=== PATIENT | male | born 1940 | race Two or more races ===

== ENCOUNTER 2024-08-06 11:24 | Inpatient (IN) | payer MEDICARE, OTHER ==
[~2024-08-06] VITALS: Ht 170.2 cm; Wt 44.9 kg
[2024-08-06 11:51] LABS: BASOPHILS # (AUTO) 0.1 K/uL (0.0-0.2); BASOPHILS % (AUTO) 0.5 % (0.0-2.0); HEMATOCRIT 39 % (39-51); HEMOGLOBIN 12.5 g/dL (13.5-17.5); LYMPHOCYTES % (AUTO) 6.9 % (20.0-44.0); MEAN CORPUSCULAR HEMOGLOBIN 33 PG (26.0-33.0); MEAN CORPUSCULAR HGB CONC 32 g/dl (31.0-36.0); MEAN CORPUSCULAR VOLUME 102 fL (80-96); MONOCYTES # (AUTO) 1.2 K/uL (0.1-1.30); NEUTROPHILS # (AUTO) 11.6 K/uL (1.8-8.9); NEUTROPHILS % (AUTO) 83.6 % (43.0-81.0); PLATELET COUNT (AUTO) 178 K/uL (150-450); RED BLOOD CELL COUNT(AUTO) 3.83 MIL/uL (4.5-6.0); RED CELL DISTRIBUTION WIDTH 16.4 % (11.5-15.0); WHITE BLOOD COUNT (AUTO) 13.9 K/uL (4.3-11.0)
[2024-08-06 12:02] LABS: INR 1.3 (0.91-1.10); PARTIAL THROMBOPLASTIN TIME 23.4 SEC (24.3-34.3); PROTHROMBIN TIME 13.5 SECS (9.2-11.1)
[2024-08-06 12:14] LABS: ALANINE AMINOTRANSFERASE 39 U/L (12-78); ALBUMIN 2.8 g/dL (3.4-5.0); ALKALINE PHOSPHATASE 107 U/L (46-116); ASPARTATE AMINOTRANSFERASE 32 U/L (15-37); BILIRUBIN,DIRECT 0.2 mg/dL (0.0-0.2); BILIRUBIN,TOTAL 0.6 mg/dL (0.2-1.0); CALCIUM, SERUM 9.3 mg/dL (8.5-10.1); CARBON DIOXIDE 29 mmol/L (21-32); CHLORIDE 112 mmol/L (98-107); CREATININE 1.2 mg/dL (0.6-1.3); GLUCOSE 174 mg/dL (74-106); NT-PRO BNP 543 pg/mL (0-125); POTASSIUM 4.5 mmol/L (3.5-5.1); SODIUM SERUM 150 mmol/L (136-145); TOTAL PROTEIN, SERUM 8.2 g/dL (6.4-8.2); UREA NITROGEN, BLOOD 39 mg/dL (7-18)
[2024-08-06] MEDS: CEFEPIME 1 GM in IV D5W 50 ML IV ONE (13:02)
[2024-08-06] MEDS: VANCOMYCIN 1 GM in IV D5W 250 ML IV ONE (13:31)
[2024-08-06] MEDS ORDERED: CEFTRIAXONE 1GM BAG (ER ONLY) 50 ML IV ONE (13:42)
[2024-08-06] MEDS: CEFTRIAXONE 1GM BAG (ER ONLY) 1 GM/50 ML PIGGYBACK IV ONE (13:44)
[2024-08-06] MEDS: AZITHROMYCIN 500 MG in IV D5W 250 ML IV ONE (13:53)
[2024-08-06 20:42] VITALS: O2SAT 96
[2024-08-06] MEDS ORDERED: Z GUARD REMEDY 4 OZ OINT TP PRN (21:30)
[2024-08-06] MEDS ORDERED: MAG HYDROX/AL HYDROX/SIMETH 30 ML UDC PO PRN (21:30)
[2024-08-06] MEDS ORDERED: MAGNESIUM HYDROXIDE 30 ML UDC PO PRN (21:30)
[2024-08-06] MEDS ORDERED: ONDANSETRON HCL/PF 4 MG/2 ML VIAL IVP PRN (21:30)
[2024-08-06] MEDS ORDERED: ZOLPIDEM TARTRATE 5 MG TABLET PO PRN (21:30)
[2024-08-06] MEDS ORDERED: ENOXAPARIN SODIUM 40 MG/0.4 ML DISP.SYRIN SQ SCH (21:30)
[2024-08-06] MEDS ORDERED: ACETAMINOPHEN 325 MG TABLET PO PRN (21:30)
[2024-08-06 22:56] VITALS: O2SAT 98
[2024-08-06] MEDS: ENOXAPARIN SODIUM 30 MG/0.3 ML DISP.SYRIN SQ SCH (22:57)
[2024-08-06 23:00] VITALS: BP_SYST 120; BP_SYST 125; BP_DIAS 68; BP_DIAS 73; TEMP 98.6; O2SAT 95; O2SAT 98
[2024-08-06 23:12] LABS: ABG BASE EXCESS 0.6 mmol/L (-2.0-3.0); ABG OXYGEN SATURATION 98.7 % (94.0-98.0); ABG PCO2 33.1 mmHg (35.0-48.0); ABG PH 7.472 (7.350-7.450); ABG PO2 162.7 mmHg (83.0-108.0); ABG TOTAL HEMOGLOBIN 12.7 G/dL (13.5-17.5); COHb 0.2 % (0.5-1.5); MetHb 0.1 % (0.0-1.5); O2Hb 98.4 % (94.0-97.0); SITE, ABG RIGHT RADIAL
[2024-08-06 23:20] VITALS: O2SAT 97
[2024-08-07] VITALS (64 sets, daily range): BP systolic 104–136; BP diastolic 60–98; TEMP 98–98.6; O2SAT 50–97
[2024-08-07 04:25] LABS: BASOPHILS % (AUTO) 0.3 % (0.0-2.0); HEMATOCRIT 36 % (39-51); HEMOGLOBIN 11.8 g/dL (13.5-17.5); LYMPHOCYTES # (AUTO) 0.9 K/uL (0.8-4.8); LYMPHOCYTES % (AUTO) 6.5 % (20.0-44.0); MEAN CORPUSCULAR HEMOGLOBIN 33 PG (26.0-33.0); MEAN CORPUSCULAR HGB CONC 33 g/dl (31.0-36.0); MEAN CORPUSCULAR VOLUME 101 fL (80-96); MONOCYTES # (AUTO) 1.4 K/uL (0.1-1.30); MONOCYTES % (AUTO) 10.4 % (2.0-12.0); NEUTROPHILS # (AUTO) 11.6 K/uL (1.8-8.9); NEUTROPHILS % (AUTO) 82.8 % (43.0-81.0); PLATELET COUNT (AUTO) 155 K/uL (150-450); RED BLOOD CELL COUNT(AUTO) 3.56 MIL/uL (4.5-6.0)
[2024-08-07 04:53] LABS: CALCIUM, SERUM 8.7 mg/dL (8.5-10.1); CARBON DIOXIDE 32 mmol/L (21-32); CHLORIDE 109 mmol/L (98-107); GLUCOSE 128 mg/dL (74-106); MAGNESIUM 2.5 mg/dL (1.8-2.4); POTASSIUM 4.1 mmol/L (3.5-5.1); SODIUM SERUM 146 mmol/L (136-145); UREA NITROGEN, BLOOD 38 mg/dL (7-18)
[2024-08-07] MEDS: PANTOPRAZOLE 40 MG VIAL IV SCH (08:18)
[2024-08-07] MEDS: VANCOMYCIN 500 MG in IV D5W 100ml IV SCH (08:41)
[2024-08-07] MEDS: CEFEPIME 1 GM in IV D5W 50 ML IV SCH (09:41)
[2024-08-07] MEDS: methylPREDNISolone SOD SUCC 125 MG/2ML VIAL IV SCH (10:46)
[2024-08-07 10:50] LABS: APPEARANCE,URINE TURBID (CLEAR); BILIRUBIN,URINE 1+ (NEGATIVE); BLOOD, URINE 1+ Ery/uL (NEGATIVE); COLOR,URINE YELLOW (YELLOW); KETONES,URINE NEGATIVE (NEGATIVE); LEUKOCYTE ESTERASE ,URINE NEGATIVE (NEGATIVE); NITRITE, URINE POSITIVE (NEGATIVE); PROTEIN,URINE 2+ mg/dl (NEGATIVE); UGLUCOSE TRACE mg/dL (NEGATIVE)
[2024-08-07 11:06] LABS: ADD URINE CULTURE YES; BACTERIA,URINE Few /HPF (None Seen); SQUAMOUS EPITHELIAL CELL,UR None Seen /HPF (None Seen); URINE AMORPHOUS URATE Moderate /HPF (None Seen); WBC,URINE 0-2 /HPF (0-3)
[2024-08-07 11:48] LABS: CREATININE, URINE 302.6 MG/DL (30.0-125.0); URINE SODIUM, RANDOM < 5 mmol/l (40-220); URINE TOTAL PROTEIN 219.4 mg/dL (0-11.9)
[2024-08-07 12:42] LABS: EOSINOPHIL,URINE None Seen
[2024-08-07] MEDS ORDERED: [UNRECOGNIZED DRUG - OTHER] PO (13:13)
[2024-08-07] MEDS ORDERED: DOCU100C36 PO (13:13)
[2024-08-07] MEDS ORDERED: CHOL200038 PO (13:13)
[2024-08-07] MEDS ORDERED: ALBU6.7H9 IH (13:13)
[2024-08-07] MEDS ORDERED: ASPI-1420 PO (13:13)
[2024-08-07] MEDS ORDERED: CALC-770 PO (13:13)
[2024-08-07] MEDS ORDERED: CYAN-51 PO (13:13)
[2024-08-07] MEDS ORDERED: TERA5CAP4 PO (13:13)
[2024-08-07] MEDS ORDERED: OLOP5DRO22 EACHEYE (13:13)
[2024-08-07] MEDS ORDERED: CICL6.1H2 INH (13:13)
[2024-08-07] MEDS ORDERED: MORPHINE SULFATE INJ 2 MG/ML DISP.SYRIN IV PRN (20:30)
[2024-08-08] VITALS (49 sets, daily range): BP systolic 117–163; BP diastolic 62–99; TEMP 97.7–98; O2SAT 92–97
[2024-08-08 04:49] LABS: EOSINOPHILS % (AUTO) 0.1 % (0.0-6.0); HEMATOCRIT 35 % (39-51); HEMOGLOBIN 11.6 g/dL (13.5-17.5); LYMPHOCYTES # (AUTO) 0.3 K/uL (0.8-4.8); LYMPHOCYTES % (AUTO) 3.6 % (20.0-44.0); MEAN CORPUSCULAR HEMOGLOBIN 34 PG (26.0-33.0); MEAN CORPUSCULAR HGB CONC 34 g/dl (31.0-36.0); MEAN CORPUSCULAR VOLUME 102 fL (80-96); MONOCYTES # (AUTO) 0.4 K/uL (0.1-1.30); MONOCYTES % (AUTO) 4.6 % (2.0-12.0); NEUTROPHILS % (AUTO) 91.7 % (43.0-81.0); PLATELET COUNT (AUTO) 178 K/uL (150-450); RED BLOOD CELL COUNT(AUTO) 3.42 MIL/uL (4.5-6.0); RED CELL DISTRIBUTION WIDTH 15.9 % (11.5-15.0); WHITE BLOOD COUNT (AUTO) 8.7 K/uL (4.3-11.0)
[2024-08-08 05:06] LABS: CALCIUM, SERUM 8.5 mg/dL (8.5-10.1); CARBON DIOXIDE 30 mmol/L (21-32); CHLORIDE 110 mmol/L (98-107); GLUCOSE 150 mg/dL (74-106); POTASSIUM 4.1 mmol/L (3.5-5.1); SODIUM SERUM 147 mmol/L (136-145); UREA NITROGEN, BLOOD 47 mg/dL (7-18)
[2024-08-08] MEDS ORDERED: LIDOCAINE 2% JEL UROJET 10 ML MM ONE (21:41)
[2024-08-08] MEDS: LIDOCAINE 2% JEL UROJET 10 ML MM ONE (23:45)
[2024-08-09] VITALS (11 sets, daily range): BP systolic 135–154; BP diastolic 68–108; TEMP 97.5–98; O2SAT 91–96
[2024-08-09 05:00] LABS: HEMATOCRIT 36 % (39-51); HEMOGLOBIN 11.9 g/dL (13.5-17.5); LYMPHOCYTES # (AUTO) 0.3 K/uL (0.8-4.8); LYMPHOCYTES % (AUTO) 1.7 % (20.0-44.0); MEAN CORPUSCULAR HEMOGLOBIN 34 PG (26.0-33.0); MEAN CORPUSCULAR HGB CONC 33 g/dl (31.0-36.0); MEAN CORPUSCULAR VOLUME 102 fL (80-96); MONOCYTES % (AUTO) 5.6 % (2.0-12.0); NEUTROPHILS # (AUTO) 16.6 K/uL (1.8-8.9); NEUTROPHILS % (AUTO) 92.7 % (43.0-81.0); PLATELET COUNT (AUTO) 200 K/uL (150-450); RED BLOOD CELL COUNT(AUTO) 3.53 MIL/uL (4.5-6.0); RED CELL DISTRIBUTION WIDTH 15.7 % (11.5-15.0); WHITE BLOOD COUNT (AUTO) 17.9 K/uL (4.3-11.0)
[2024-08-09 05:07] LABS: CALCIUM, SERUM 8.2 mg/dL (8.5-10.1); CARBON DIOXIDE 28 mmol/L (21-32); CHLORIDE 112 mmol/L (98-107); CREATININE 0.9 mg/dL (0.6-1.3); GLUCOSE 155 mg/dL (74-106); POTASSIUM 4.5 mmol/L (3.5-5.1); SODIUM SERUM 147 mmol/L (136-145); UREA NITROGEN, BLOOD 57 mg/dL (7-18)
== END 2024-08-09 13:00 | disposition short-term general hospital (02) | DRG 871 ==
LOC: ER 12:25 → ICU 21:44 → TELE 08-09 10:55
PROVIDERS: ATTEND Internal Medicine
DX: A41.9 Sepsis, unspecified organism (principal); J15.69 Pneumonia due to other Gram-negative bacteria; J15.9 Unspecified bacterial pneumonia; N17.0 Acute kidney failure with tubular necrosis; J96.21 Acute and chronic respiratory failure with hypoxia; E87.0 Hyperosmolality and hypernatremia; E87.20 Acidosis, unspecified; D62 Acute posthemorrhagic anemia; N39.0 Urinary tract infection, site not specified; Z20.822 Contact with and (suspected) exposure to COVID-19; K21.9 Gastro-esophageal reflux disease without esophagitis; Z98.890 Other specified postprocedural states; Y95 Nosocomial condition; B96.89 Other specified bacterial agents as the cause of diseases classified elsewhere; Z87.39 Personal history of other diseases of the musculoskeletal system and connective tissue
CPT/HCPCS: 36415; 36600; 71045-TC; 80048-TC; 80076-TC; 80202-TC; 81001; 82570-TC; 82803-TC; 83605-TC; 83735-TC; 83880; 84100-TC; 84300-TC; 84484-TC; 85025-TC; 85730-TC; 87040-TC; 87086-TC; 92526; 92611-TC; 93307-TC; 94760-TC; 94762-TC; 94799-TC; 97110-TC; 99082-TC; A4223; G0378; J0456; J0692; J0696; J1650; J2470; J2919; J3370; J3490; J7050; J7060